=== PATIENT | male | born 1940 | race African-American/Black ===

== ENCOUNTER 2022-07-27 03:52 | Emergency (ER) | payer OTHER ==
[~2022-07-27] VITALS: Ht 177.8 cm; Wt 98.0 kg
[2022-07-27] MEDS ORDERED: DEXTROSE 50% WATER 50ML SYRINGE IV ONE ×2 (03:57→04:00)
[2022-07-27] MEDS ORDERED: DEXT 10% WATER 1,000 ML IV ONE (04:00)
[2022-07-27] MEDS ORDERED: OCTREOTIDE ACETATE 50 MCG/ML 1ML IV ONE (04:00)
[2022-07-27 04:37] LABS: BASOPHILS % 0.4 % (0.0-2.0); EOSINOPHILS % 0.4 % (0.0-5.0); HEMATOCRIT. 35.1 % (42.0-52.0); HEMOGLOBIN. 11.3 g/dL (14.0-18.0); LYMPHOCYTES % 14.9 % (20.0-50.0); MEAN CORPUSCULAR HEMOGLOBIN 26.7 pg (28.0-32.0); MEAN CORPUSCULAR VOLUME 82.6 fL (80.0-94.0); MEAN PLATELET VOLUME 8.4 fl (7.4-10.4); MONOCYTES % 10.6 % (2.0-8.0); NEUTROPHILS % 73.7 % (40.0-76.0); PLATELET 210 x1000/uL (130-400); RED BLOOD CELL COUNT 4.25 mill/uL (4.7-6.1); RED CELL DISTRIBUTION WIDTH 15.5 % (11.6-14.6)
[2022-07-27] MEDS ORDERED: OCTREOTIDE ACETATE 50 MCG/ML 1ML IV NR (04:45)
[2022-07-27 04:51] LABS: CHLORIDE 101 mEq/L (98-107)
[2022-07-27 08:25] VITALS: BP 164/77
== END 2022-07-27 08:59 | disposition short-term general hospital (02) ==
LOC: ER 03:52
DX: E11.649 Type 2 diabetes mellitus with hypoglycemia without coma (principal); G93.41 Metabolic encephalopathy; I10 Essential (primary) hypertension; E78.00 Pure hypercholesterolemia, unspecified; Z85.46 Personal history of malignant neoplasm of prostate; Z79.84 Long term (current) use of oral hypoglycemic drugs; Z20.822 Contact with and (suspected) exposure to COVID-19
CPT/HCPCS: 36415; 70450; 71045; 80053; 82140; 82962; 83605; 84484; 85025; 87426; 96361; 96374; 96375; 99291; C9803; J2354

== ENCOUNTER 2023-07-19 23:56 | Emergency (ER) | payer OTHER ==
[~2023-07-19] VITALS: Ht 177.8 cm; Wt 87.0 kg
[2023-07-19 23:59] VITALS: O2SAT 98
[2023-07-20] MEDS: ACETAMINOPHEN 325MG TABLET PO STA (01:16)
[2023-07-20] MEDS: PANTOPRAZOLE SODIUM 40 MG/VIAL IV ONE (01:17)
[2023-07-20] MEDS: ONDANSETRON HCL 4MG/2ML INJ IV ONE (01:18)
[2023-07-20 01:35] LABS: BASOPHILS % 0.6 % (0.0-2.0); EOSINOPHILS % 0.1 % (0.0-5.0); HEMATOCRIT. 35.5 % (42.0-52.0); HEMOGLOBIN. 11.4 g/dL (14.0-18.0); LYMPHOCYTES % 11.9 % (20.0-50.0); MEAN CORPUSCULAR HGB CONC 32.1 g/dL (31.0-37.0); MEAN CORPUSCULAR VOLUME 84.1 fL (80.0-94.0); MEAN PLATELET VOLUME 8.6 fl (7.4-10.4); MONOCYTES % 8.3 % (2.0-8.0); NEUTROPHILS % 79.1 % (40.0-76.0); PLATELET 243 x1000/uL (130-400); RED BLOOD CELL COUNT 4.22 mill/uL (4.7-6.1); RED CELL DISTRIBUTION WIDTH 15.2 % (11.6-14.6); WHITE BLOOD COUNT 12.8 x1000/uL (4.5-11.0)
[2023-07-20 01:51] LABS: PROTHROMBIN TIME 11.1 sec (9.6-11.0)
[2023-07-20 01:52] LABS: ALANINE AMINOTRANSFERASE 12 IU/L (10-49); ALBUMIN 4.6 g/dL (3.2-4.8); ASPARTATE AMINOTRANSFERASE 27 IU/L (<34); BILIRUBIN TOTAL 0.5 mg/dL (0.1-1.0); CARBON DIOXIDE 24 mEq/L (21-32); CHLORIDE 102 mEq/L (98-107); CREATININE 1.7 mg/dL (0.6-1.3); GLUCOSE 189 mg/dL (70-105); POTASSIUM 4.3 mEq/L (3.5-5.1); PROTEIN TOTAL 8.7 g/dL (6.0-8.3); SODIUM 133 mEq/L (136-145); TROPONIN I HIGH SENSITIVITY 14 ng/L (3.0-53); UREA NITROGEN BLOOD 21 mg/dL (9-23)
[2023-07-20] MEDS: MAGNESIUM/ALUMINUM HYDROXIDE/SIMETHICONE 30ML UDC PO ONE (03:29)
[2023-07-20 04:14] LABS: TROPONIN I HIGH SENSITIVITY 18 ng/L (3.0-53)
[2023-07-20 08:39] VITALS: BP 115/72; PULSE 69; RESP 16; TEMP 98.9
== END 2023-07-20 08:38 | disposition home or self-care (01) ==
LOC: ER 23:56
DX: K44.9 Diaphragmatic hernia without obstruction or gangrene (principal); K21.9 Gastro-esophageal reflux disease without esophagitis; I10 Essential (primary) hypertension; E78.00 Pure hypercholesterolemia, unspecified; E11.9 Type 2 diabetes mellitus without complications; Z20.822 Contact with and (suspected) exposure to COVID-19; Z86.73 Personal history of transient ischemic attack (TIA), and cerebral infarction without residual deficits
CPT/HCPCS: 99285; 74176; 96365; 76705; 71045; 96375; 87426; 80053; 83880; 83605; 83690; 85025; 85610; 87040; 84484; 87804 ×2; 36415; 84145; J2405; C9113

== ENCOUNTER 2024-09-17 20:10 | Emergency (ER) | payer OTHER ==
[~2024-09-17] VITALS: Ht 182.9 cm; Wt 91.0 kg
[~2024-09-17 20:10] MED LIST: ATOR40TA70 PO; GLIP10TA17 PO; METF-414 PO; METO-385 PO
[2024-09-17 20:30] VITALS: O2SAT 99
[2024-09-17 22:11] LABS: BASOPHILS % 0.8 % (0.0-2.0); EOSINOPHILS % 1.3 % (0.0-5.0); HEMATOCRIT. 28.8 % (42.0-52.0); HEMOGLOBIN. 9.2 g/dL (14.0-18.0); LYMPHOCYTES % 21.6 % (20.0-50.0); MEAN CORPUSCULAR HEMOGLOBIN 26.8 pg (28.0-32.0); MEAN CORPUSCULAR VOLUME 83.6 fL (80.0-94.0); MONOCYTES % 8.4 % (2.0-8.0); NEUTROPHILS % 67.9 % (40.0-76.0); PLATELET 425 x1000/uL (130-400); RED BLOOD CELL COUNT 3.44 mill/uL (4.7-6.1); RED CELL DISTRIBUTION WIDTH 16.4 % (11.6-14.6); WHITE BLOOD COUNT 9.9 x1000/uL (4.5-11.0)
[2024-09-17 22:18] LABS: CHLORIDE 103 mEq/L (98-107); POTASSIUM 5.1 mEq/L (3.5-5.1); SODIUM 132 mEq/L (136-145)
[2024-09-17 22:19] LABS: CALCIUM 8.7 mg/dL (8.7-10.4); CARBON DIOXIDE 24 mEq/L (21-32)
[2024-09-17 22:24] LABS: CREATININE 1.3 mg/dL (0.6-1.3); GLUCOSE 245 mg/dL (70-105); UREA NITROGEN BLOOD 14 mg/dL (9-23)
[2024-09-18 03:30] LABS: GLUCOSE URINE NEGATIVE (NEGATIVE); KETONES URINE NEGATIVE (NEGATIVE)
[2024-09-18 03:53] LABS: CLARITY URINE TURBID (CLEAR); COLOR URINE RED (YELLOW); PROTEIN URINE 4+ (NEGATIVE); SPECIFIC GRAVITY URINE 1.021 (1.005-1.030)
[2024-09-18 03:54] LABS: NITRITE URINE POSITIVE (NEGATIVE); OCCULT BLOOD URINE 1+ (NEGATIVE)
[2024-09-18 03:55] LABS: LEUKOCYTE ESTERASE URINE 3+ (NEGATIVE); UROBILINOGEN URINE 0.2 E.U./dL (0.2-1.0)
[2024-09-18 05:04] LABS: RBC URINE TNTC /hpf (0-2)
[2024-09-18 05:14] LABS: WBC URINE 15-25 /hpf (0-2)
[2024-09-18 05:15] LABS: SQUAMOUS EPITHELIAL CELL URINE NONE SEEN /lpf (RARE/1+)
[2024-09-18 05:17] LABS: BACTERIA URINE 1+
[2024-09-18] MEDS: CEFTRIAXONE 1GM/50ML 50 ML IV ONE (07:05)
[2024-09-18 08:44] VITALS: BP 130/64; PULSE 62; RESP 15; TEMP 36.8; O2SAT 99
== END 2024-09-18 09:18 | disposition short-term general hospital (02) ==
LOC: ER 20:10
DX: N39.0 Urinary tract infection, site not specified (principal); R31.0 Gross hematuria; E11.9 Type 2 diabetes mellitus without complications; E78.00 Pure hypercholesterolemia, unspecified; I11.0 Hypertensive heart disease with heart failure; I50.9 Heart failure, unspecified; Z79.84 Long term (current) use of oral hypoglycemic drugs; Z79.899 Other long term (current) drug therapy; Z85.46 Personal history of malignant neoplasm of prostate; Z86.73 Personal history of transient ischemic attack (TIA), and cerebral infarction without residual deficits
CPT/HCPCS: 99285; 80048; 85025; 36415; 51702; 96365; 81003; 87086; J0696

== ENCOUNTER 2024-12-17 19:12 | Emergency (ER) | payer MEDICARE, OTHER ==
[~2024-12-17] VITALS: Ht 180.3 cm; Wt 82.0 kg
[2024-12-17 19:35] VITALS: TEMP 37.2; O2SAT 99
[2024-12-17 21:26] LABS: BASOPHILS % 0.8 % (0.0-2.0); EOSINOPHILS % 1.1 % (0.0-5.0); HEMATOCRIT. 32.4 % (42.0-52.0); HEMOGLOBIN. 10.2 g/dL (14.0-18.0); LYMPHOCYTES % 22.4 % (20.0-50.0); MEAN PLATELET VOLUME 8.0 fl (7.4-10.4); MONOCYTES % 8.3 % (2.0-8.0); NEUTROPHILS % 67.4 % (40.0-76.0); PLATELET 276 x1000/uL (130-400); RED BLOOD CELL COUNT 4.10 mill/uL (4.7-6.1); RED CELL DISTRIBUTION WIDTH 19.6 % (11.6-14.6)
[2024-12-17 21:37] LABS: CREATININE 1.1 mg/dL (0.6-1.3); UREA NITROGEN BLOOD 9 mg/dL (9-23)
[2024-12-17 23:24] LABS: CLARITY URINE TURBID (CLEAR); COLOR URINE RED (YELLOW); GLUCOSE URINE NEGATIVE (NEGATIVE); KETONES URINE NEGATIVE (NEGATIVE); LEUKOCYTE ESTERASE URINE 3+ (NEGATIVE); NITRITE URINE POSITIVE (NEGATIVE); OCCULT BLOOD URINE 2+ (NEGATIVE); PH URINE 5.5 (4.5-8.0); PROTEIN URINE 2+ (NEGATIVE); SPECIFIC GRAVITY URINE 1.014 (1.005-1.030); UROBILINOGEN URINE 0.2 E.U./dL (0.2-1.0)
[2024-12-17] MEDS ORDERED: CEFTRIAXONE 1,000 MG in DEXT 5% WATER 100 ML IV STA (23:29)
[2024-12-17] MEDS: CEFTRIAXONE 1GM/50ML 50ML IV NR (23:48)
[2024-12-17] MEDS: SODIUM CHLORIDE 0.9% 1,000 ML IV ONE (23:48)
[2024-12-18] LABS: RBC URINE TNTC /hpf (0-2); SQUAMOUS EPITHELIAL CELL URINE FEW /lpf (RARE/1+); WBC URINE TNTC /hpf (0-2)
[2024-12-18 00:01] LABS: BACTERIA URINE 2+
[2024-12-18] MEDS ORDERED: CIPR-452 MT (00:52)
[2024-12-18 03:35] VITALS: BP 123/64; PULSE 68; RESP 13; O2SAT 98
== END 2024-12-18 03:39 | disposition home or self-care (01) ==
LOC: ER 19:12
DX: T83.021A Displacement of indwelling urethral catheter, initial encounter (principal); E11.9 Type 2 diabetes mellitus without complications; I10 Essential (primary) hypertension; N39.0 Urinary tract infection, site not specified; Z79.899 Other long term (current) drug therapy; X58.XXXA Exposure to other specified factors, initial encounter
CPT/HCPCS: 99285; 96365; 96361; 71045; 80048; 81003; 85025; 87086; 87186; 87077; 36415; 51702; 93005; J0696; J7030

== ENCOUNTER 2025-01-07 14:11 | Emergency (ER) | payer MEDICARE, OTHER ==
[~2025-01-07] VITALS: Ht 175.3 cm; Wt 80.0 kg
[~2025-01-07 14:11] MED LIST changes: +CIPR-452 MT; -METO-385 PO; +TERA5CAP4 PO
[2025-01-07 14:23] VITALS: O2SAT 98
[2025-01-07 16:09] LABS: CREATININE 1.0 mg/dL (0.6-1.3); UREA NITROGEN BLOOD 12 mg/dL (9-23)
[2025-01-07 16:11] LABS: BASOPHILS % 0.5 % (0.0-2.0); EOSINOPHILS % 0.1 % (0.0-5.0); HEMATOCRIT. 35.4 % (42.0-52.0); HEMOGLOBIN. 11.0 g/dL (14.0-18.0); LYMPHOCYTES % 9.9 % (20.0-50.0); MEAN PLATELET VOLUME 7.9 fl (7.4-10.4); MONOCYTES % 4.6 % (2.0-8.0); NEUTROPHILS % 84.9 % (40.0-76.0); PLATELET 323 x1000/uL (130-400); RED BLOOD CELL COUNT 4.28 mill/uL (4.7-6.1); RED CELL DISTRIBUTION WIDTH 20.1 % (11.6-14.6)
[2025-01-07 17:22] LABS: GLUCOSE URINE NEGATIVE (NEGATIVE); KETONES URINE TRACE (NEGATIVE); LEUKOCYTE ESTERASE URINE TRACE (NEGATIVE); NITRITE URINE POSITIVE (NEGATIVE); OCCULT BLOOD URINE 3+ (NEGATIVE); PH URINE 5.0 (4.5-8.0); PROTEIN URINE 2+ (NEGATIVE); SPECIFIC GRAVITY URINE 1.024 (1.005-1.030); UROBILINOGEN URINE 0.2 E.U./dL (0.2-1.0)
[2025-01-07 17:41] LABS: COLOR URINE YELLOW (YELLOW)
[2025-01-07 17:45] LABS: CLARITY URINE SL HAZY (CLEAR)
[2025-01-07 17:46] LABS: BACTERIA URINE 2+; MUCUS URINE TRACE /lpf (NONE/TRACE); SQUAMOUS EPITHELIAL CELL URINE RARE /lpf (RARE/1+); YEAST URINE 2+
[2025-01-07 19:45] VITALS: BP 135/75; PULSE 86; RESP 16; TEMP 36.6; O2SAT 99
[2025-01-07] MEDS ORDERED: MEROPENEM 1G/100ML 100 ML IV SCH (22:00)
== END 2025-01-07 20:15 | disposition short-term general hospital (02) ==
LOC: ER 14:20 → EDBEDREQ 19:46 → EDBEDREQTM 19:46 → ER 20:15
DX: T83.9XXA Unspecified complication of genitourinary prosthetic device, implant and graft, initial encounter (principal); N39.0 Urinary tract infection, site not specified; E11.9 Type 2 diabetes mellitus without complications; I11.0 Hypertensive heart disease with heart failure; I50.9 Heart failure, unspecified; Z86.73 Personal history of transient ischemic attack (TIA), and cerebral infarction without residual deficits; Z86.711 Personal history of pulmonary embolism; Z79.84 Long term (current) use of oral hypoglycemic drugs; Z79.899 Other long term (current) drug therapy; W01.0XXA Fall on same level from slipping, tripping and stumbling without subsequent striking against object, initial encounter; Y93.89 Activity, other specified; Y92.89 Other specified places as the place of occurrence of the external cause; Y99.8 Other external cause status
CPT/HCPCS: 36415; 51702; 74176; 80048; 81003; 82962; 85025; 99285; J2185

== ENCOUNTER 2025-04-11 21:56 | Emergency (ER) | payer OTHER ==
[~2025-04-11] VITALS: Ht 180.3 cm; Wt 77.0 kg
[~2025-04-11 21:56] MED LIST changes: -CIPR-452 MT
[2025-04-11 22:08] VITALS: O2SAT 100
[2025-04-11 23:09] LABS: BASOPHILS % 0.6 % (0.0-2.0); EOSINOPHILS % 0.4 % (0.0-5.0); HEMATOCRIT. 37.0 % (42.0-52.0); HEMOGLOBIN. 11.9 g/dL (14.0-18.0); LYMPHOCYTES % 23.6 % (20.0-50.0); MEAN PLATELET VOLUME 7.9 fl (7.4-10.4); MONOCYTES % 8.2 % (2.0-8.0); NEUTROPHILS % 67.2 % (40.0-76.0); PLATELET 442 x1000/uL (130-400); RED BLOOD CELL COUNT 4.67 mill/uL (4.7-6.1); RED CELL DISTRIBUTION WIDTH 17.1 % (11.6-14.6)
[2025-04-11 23:23] LABS: CREATININE 1.6 mg/dL (0.6-1.3); UREA NITROGEN BLOOD 14 mg/dL (9-23)
[2025-04-11 23:24] LABS: ASPARTATE AMINOTRANSFERASE 9 IU/L (<34)
[2025-04-11 23:25] LABS: BILIRUBIN DIRECT 0.1 mg/dL (<=3.0); BILIRUBIN TOTAL 0.4 mg/dL (0.1-1.0); PROTEIN TOTAL 7.6 g/dL (6.0-8.3)
[2025-04-11 23:32] LABS: INR 1.0
[2025-04-11] MEDS: SODIUM CHLORIDE 0.9% (SEPSIS BOLUS) IV ONE (23:41)
[2025-04-12 00:24] LABS: CLARITY URINE TURBID (CLEAR); COLOR URINE ORANGE (YELLOW); GLUCOSE URINE NEGATIVE (NEGATIVE); KETONES URINE NEGATIVE (NEGATIVE); LEUKOCYTE ESTERASE URINE 3+ (NEGATIVE); NITRITE URINE NEGATIVE (NEGATIVE); OCCULT BLOOD URINE 3+ (NEGATIVE); PH URINE 6.0 (4.5-8.0); PROTEIN URINE 2+ (NEGATIVE); SPECIFIC GRAVITY URINE 1.012 (1.005-1.030); UROBILINOGEN URINE 0.2 E.U./dL (0.2-1.0)
[2025-04-12] MEDS: CEFTRIAXONE 1GM/50ML 50 ML IV ONE (00:28)
[2025-04-12 02:02] LABS: BACTERIA URINE 2+; RBC URINE TNTC /hpf (0-2); SQUAMOUS EPITHELIAL CELL URINE NONE SEEN /lpf (RARE/1+); WBC URINE TNTC /hpf (0-2)
[2025-04-12 04:00] VITALS: BP 147/77; PULSE 67; RESP 17; TEMP 36.6; O2SAT 98
[2025-04-12] MEDS ORDERED: MEROPENEM 1G/100ML 100 ML IV SCH (06:00)
== END 2025-04-12 04:25 | disposition short-term general hospital (02) ==
LOC: ER 21:56 → CMPBEDREQ 04-12 07:29
DX: T83.091A Other mechanical complication of indwelling urethral catheter, initial encounter (principal); N39.0 Urinary tract infection, site not specified; E11.9 Type 2 diabetes mellitus without complications; I10 Essential (primary) hypertension; Z79.899 Other long term (current) drug therapy; Z86.19 Personal history of other infectious and parasitic diseases; Z86.711 Personal history of pulmonary embolism; Z86.73 Personal history of transient ischemic attack (TIA), and cerebral infarction without residual deficits; Z87.440 Personal history of urinary (tract) infections; Y73.8 Miscellaneous gastroenterology and urology devices associated with adverse incidents, not elsewhere classified
CPT/HCPCS: 99291; 80076; 80048; 81003; 83605 ×2; 85025; 85610; 87040; 87086; 87186; 87077; 36415; 84145; 71045; 93005; 96374; 82962; J7030; J0696

== ENCOUNTER 2025-05-11 22:49 | Emergency (ER) | payer OTHER ==
[~2025-05-11] VITALS: Ht 182.9 cm; Wt 78.0 kg
[2025-05-11 23:02] VITALS: O2SAT 98
[2025-05-12 00:11] LABS: HEMATOCRIT. 38.3 % (42.0-52.0); HEMOGLOBIN. 11.9 g/dL (14.0-18.0); MEAN PLATELET VOLUME 8.5 fl (7.4-10.4); PLATELET 489 x1000/uL (130-400); RED BLOOD CELL COUNT 4.77 mill/uL (4.7-6.1); RED CELL DISTRIBUTION WIDTH 17.7 % (11.6-14.6)
[2025-05-12] MEDS: SODIUM CHLORIDE 0.9% 1,000 ML IV ONE (00:16)
[2025-05-12] MEDS: MORPHINE SULFATE 4 MG/ML INJ (FOR IV/IM USE) IV ONE (00:17)
[2025-05-12] MEDS: ONDANSETRON HCL 4MG/2ML INJ IV ONE (00:18)
[2025-05-12 00:24] LABS: CREATININE 1.4 mg/dL (0.6-1.3); PROTEIN TOTAL 8.0 g/dL (6.0-8.3); UREA NITROGEN BLOOD 16 mg/dL (9-23)
[2025-05-12 00:25] LABS: ASPARTATE AMINOTRANSFERASE 10 IU/L (<34)
[2025-05-12 00:26] LABS: BILIRUBIN DIRECT 0.2 mg/dL (<=3.0); BILIRUBIN TOTAL 0.8 mg/dL (0.1-1.0)
[2025-05-12] MEDS: CEFTRIAXONE 1GM/50ML 50 ML IV ONE (02:15)
[2025-05-12 03:23] LABS: CLARITY URINE TURBID (CLEAR); COLOR URINE ORANGE (YELLOW); GLUCOSE URINE NEGATIVE (NEGATIVE); KETONES URINE NEGATIVE (NEGATIVE); LEUKOCYTE ESTERASE URINE 3+ (NEGATIVE); NITRITE URINE NEGATIVE (NEGATIVE); OCCULT BLOOD URINE 3+ (NEGATIVE); PH URINE 8.0 (4.5-8.0); PROTEIN URINE 2+ (NEGATIVE); SPECIFIC GRAVITY URINE 1.015 (1.005-1.030); UROBILINOGEN URINE 0.2 E.U./dL (0.2-1.0)
[2025-05-12 03:59] VITALS: BP 136/71; PULSE 78; RESP 13; TEMP 36.9; O2SAT 99
[2025-05-12 07:03] LABS: RBC URINE TNTC /hpf (0-2)
[2025-05-12 07:05] LABS: BACTERIA URINE 4+; SQUAMOUS EPITHELIAL CELL URINE NONE SEEN /lpf (RARE/1+); WBC URINE 15-25 /hpf (0-2)
[2025-05-12 09:06] LABS: BAND% 2.0 % (1.0-6.0); LYMPHOCYTES % MANUAL 7.0 % (20.0-50.0); MONOCYTES % MANUAL 6.0 % (2.0-8.0); NEUTROPHILS % MANUAL 85.0 % (45.0-75.0); PLATELET ESTIMATE INCREASED
== END 2025-05-12 04:19 | disposition short-term general hospital (02) ==
LOC: ER 22:49 → EDBEDREQSVC 05-12 02:12 → EDBEDREQDT 05-12 02:12 → EDBEDREQ 05-12 02:12 → EDBEDREQTM 05-12 02:12 → ER 05-12 04:19 → CMPBEDREQ 05-12 04:37
DX: T83.021A Displacement of indwelling urethral catheter, initial encounter (principal); E11.9 Type 2 diabetes mellitus without complications; N39.0 Urinary tract infection, site not specified; X58.XXXA Exposure to other specified factors, initial encounter; Y93.89 Activity, other specified; Y92.89 Other specified places as the place of occurrence of the external cause; Y99.8 Other external cause status
CPT/HCPCS: 99285; 71045; 80076; 80048; 83690; 85025; 36415; 93005; 51702; 74176; 96365; 96375; 96361; 81003; 87086; 87186; 87077; J2405; J2270; J7030; J0696

== ENCOUNTER 2025-05-25 18:24 | Emergency (ER) | payer OTHER ==
[~2025-05-25] VITALS: Ht 172.7 cm; Wt 73.0 kg
[2025-05-25 18:28] VITALS: O2SAT 98
[2025-05-25 19:31] VITALS: TEMP 36.8
[2025-05-25 19:31] LABS: BASOPHILS % 0.6 % (0.0-2.0); EOSINOPHILS % 0.7 % (0.0-5.0); HEMATOCRIT. 24.9 % (42.0-52.0); HEMOGLOBIN. 8.2 g/dL (14.0-18.0); LYMPHOCYTES % 17.7 % (20.0-50.0); MEAN PLATELET VOLUME 8.4 fl (7.4-10.4); MONOCYTES % 7.6 % (2.0-8.0); NEUTROPHILS % 73.4 % (40.0-76.0); PLATELET 260 x1000/uL (130-400); RED BLOOD CELL COUNT 3.00 mill/uL (4.7-6.1); RED CELL DISTRIBUTION WIDTH 18.4 % (11.6-14.6)
[2025-05-25] MEDS: PANTOPRAZOLE SODIUM 40 MG/VIAL IV ONE (19:42)
[2025-05-25 19:45] LABS: CREATININE 1.1 mg/dL (0.6-1.3); UREA NITROGEN BLOOD 7 mg/dL (9-23)
[2025-05-25 19:46] LABS: PROTEIN TOTAL 5.3 g/dL (6.0-8.3)
[2025-05-25 19:47] LABS: ASPARTATE AMINOTRANSFERASE 11 IU/L (<34); BILIRUBIN DIRECT 0.2 mg/dL (<=3.0); BILIRUBIN TOTAL 0.6 mg/dL (0.1-1.0)
[2025-05-25 20:57] LABS: INR 1.1
[2025-05-25 23:14] VITALS: BP 109/49; PULSE 66; RESP 14; O2SAT 100
== END 2025-05-25 23:47 | disposition short-term general hospital (02) ==
LOC: ER 18:24 → CMPBEDREQ 05-26 07:22
DX: K92.2 Gastrointestinal hemorrhage, unspecified (principal); I10 Essential (primary) hypertension; E11.9 Type 2 diabetes mellitus without complications; I25.2 Old myocardial infarction; Z79.899 Other long term (current) drug therapy; Z79.84 Long term (current) use of oral hypoglycemic drugs; Z86.711 Personal history of pulmonary embolism
CPT/HCPCS: 99285; 96374; 80076; 80048; 83690; 85025; 85610; 85730; 86850; 86900; 86901; 36415; 93005; J2470